=== PATIENT | male | born 1995 | race Caucasian/White ===

== ENCOUNTER 2016-08-31 14:01 | Emergency (ER) | payer SELFPAY ==
[~2016-08-31] VITALS: Ht 177.8 cm; Wt 71.0 kg
[2016-08-31] MEDS ORDERED: ONDANSETRON ODT 4 MG PO ONE (15:00)
[2016-08-31] MEDS ORDERED: ONDANSETRON ODT 4 MG ONE (15:02)
[2016-08-31 15:15] LABS: ASPARTATE AMINO TRANSFERASE 32 U/L (15-37); BLOOD UREA NITROGEN 16 mg/dL (7-18)
[2016-08-31 15:53] VITALS: BP 106/40
== END 2016-08-31 15:55 | disposition home or self-care (01) ==
LOC: ED 15:18
DX: A08.39 Other viral enteritis (principal); F17.200 Nicotine dependence, unspecified, uncomplicated
CPT/HCPCS: 36415; 80053; 85025; 99284; Q0162